=== PATIENT | female | born 2000 | race Caucasian/White ===

== ENCOUNTER 2019-10-22 20:54 | Emergency (ER) | payer OTHER ==
[2019-10-22 21:30] VITALS: BP 126/81; PULSE 75; TEMP 97.9; BMI 27.7
--- NOTE | 2019-10-22 22:15 | PDOC ---
History of Present Illness - General Chief Complaint: Pain Stated Complaint: ABD PAIN /NAUSEA Time Seen by Provider: 10/22/19 22:14 History Source: Patient Exam Limitations: No Limitations - History of Present Illness Initial Comments: 10/22/19 22:28 19yF w PMHx ADHD presenting w suprapubic pain and nausea. 7pm tonight, sudden onset midline suprapubic pain. Associated nausea and "head feeling heavy". Has been experiencing these symptoms at intermittent episodes not correlated w periods since May, started on OCP by OBGYN and told to get sonogram. Denies alcohol/smoking/illicit drugs. Irregular periods. Denies fever, cough, vomiting , chest pain, SOB, urinary/bowel mvmt changes. Past History - Past Medical History Allergies/Adverse Reactions: Allergies Allergy/AdvReac Type Severity Reaction Status Date / Time No Known Allergies Allergy Verified 10/22/19 21:30 CVA: No COPD: No - Psycho Social/Smoking Cessation Hx Smoking History: Never smoked Have you smoked in the past 12 months: No Information on smoking cessation initiated: No Hx Alcohol Use: No Drug/Substance Use Hx: No Review of Systems - Review of Systems Constitutional: No: Chills, Fever HEENTM: No: Eye Pain, Recent change in vision, Nose Pain, Throat Pain, Mouth Pain Respiratory: No: Cough, Shortness of Breath Cardiac (ROS): No: Chest Pain, Palpitations, Syncope ABD/GI: Yes: Nausea. No: Abdominal Distended, Constipated, Diarrhea, Vomiting : No: Burning, Dysuria, Flank Pain Musculoskeletal: No: Back Pain, Joint Pain, Neck Pain Integumentary: No: Bruising, Flushing, Lesions Neurological: No: Headache, Numbness, Seizure, Tingling Psychiatric: No: Anxiety, Depression, Stressors Endocrine: No: Excessive Sweating, Flushing, Intolerance to Cold, Intolerance to Heat Hematologic/Lymphatic: No: Anemia, Blood Clots *Physical Exam - Vital Signs Last Vital Signs Temp Pulse Resp BP Pulse Ox 97.9 F 75 17 126/81 100 10/22/19 21:28 10/22/19 21:28 10/22/19 21:28 10/22/19 21:28 10/22/19 21:28 - Physical Exam General Appearance: Yes: Nourished, Appropriately Dressed, Mild Distress HEENT: positive: EOMI, JOHN, Normal Voice, Hearing Grossly Normal. negative: Scleral Icterus (R), Scleral Icterus (L), Nasal Congestion, Rhinorrhea Respiratory/Chest: positive: Lungs Clear, Normal Breath Sounds. negative: Chest Tender, Respiratory Distress, Crackles, Rales, Rhonchi, Stridor, Wheezing Cardiovascular: positive: Regular Rhythm, Regular Rate, S1, S2. negative: Edema , Murmur Gastrointestinal/Abdominal: positive: Normal Bowel Sounds, Tender (moderate midline suprapubic pain), Flat, Soft. negative: Organomegaly, Distended, Guarding, Rebound, Tenderness, Hernia, Mass Musculoskeletal: negative: CVA Tenderness (R), CVA Tenderness (L) Extremity: positive: Normal Capillary Refill Integumentary: positive: Normal Color. negative: Hives, Petechiae, Rash Neurologic: positive: teaching artist II-XII NML intact, Fully Oriented, Alert, Normal Mood/ Affect, Normal Response, Responsive. negative: Sensory Deficit, Confused, Disoriented ED Treatment Course - LABORATORY CBC & Chemistry Diagram: 10/22/19 22:42 10/22/19 22:42 Medical Decision Making - Medical Decision Making 10/22/19 22:33 CBC CMP lipase UA Ucx 1L NS zofran tylenol US WBC 14 w left shift. normal CMP, neg preg --- 19yF w PMHx ADHD presenting w suprapubic pain and nausea. Ovarian cyst vs UTI. Low concern for appendicitis (no RLQ pain) vs ovarian torsion (pain not severe) vs pancreatitis (normal lipase). Not . Given 1L NS, zofran, tylenol Anticipate DC w referred PCP f/u Signed out to night team - pending US read, UA Discharge - Discharge Information Problems reviewed: Yes Clinical Impression/Diagnosis: Suprapubic pain, Nausea Condition: Improved - Follow up/Referral Referrals: Junaid Tillman MD [Staff Physician] - - Patient Discharge Instructions - Post Discharge Activity
[2019-10-22] MEDS ORDERED: SODIUM CHLORIDE 0.9% 500 ML INFUS.BAG IV ONE (22:24)
[2019-10-22] MEDS ORDERED: ACETAMINOPHEN 1000 MG/100 ML VIAL (NON FORMULARY) IVPB ONE (22:24)
[2019-10-22] MEDS ORDERED: ONDANSETRON 4 MG/2 ML VIAL IVPUSH ONE (22:26)
[2019-10-22] MEDS ORDERED: ONDANSETRON 4 MG/2 ML VIAL ONE (22:48)
[2019-10-22] MEDS ORDERED: ACETAMINOPHEN INJECTION 100 ML IVPB ONE (22:48)
[2019-10-22 22:51] LABS: BASO % 0.4 % (0-2.0); EOS % 0.7 % (0-4.5); HEMATOCRIT 38.8 % (32.4-45.2); HEMOGLOBIN 13.4 GM/dL (10.7-15.3); LYMPH % 12.9 % (8-40); MCH 32.1 pg (25.7-33.7); MCHC 34.6 g/dl (32.0-36.0); MEAN CELL VOLUME 92.7 fl (80-96); MEAN PLT VOLUME 7.4 fl (7.5-11.1); PLATELET COUNT 359 K/MM3 (134-434); RBC 4.19 M/mm3 (3.60-5.2); RDW 12.8 % (11.6-15.6); WHITE BLOOD COUNT 14.5 K/mm3 (4.0-10.0)
[2019-10-22 23:20] LABS: ALBUMIN 4.3 g/dl (3.4-5.0); BILIRUBIN,TOTAL 0.2 mg/dL (0.2-1); BLOOD UREA NITROGEN 14.7 mg/dL (7-18); CALCIUM 9.1 mg/dL (8.5-10.1); CREATININE 0.8 mg/dL (0.55-1.3); POTASSIUM 4.2 mmol/L (3.5-5.1); TOT PROT 7.8 g/dl (6.4-8.2)
--- NOTE | 2019-10-23 00:04 | PDOC ---
*Physical Exam - Vital Signs Last Vital Signs Temp Pulse Resp BP Pulse Ox 97.9 F 75 17 126/81 100 10/22/19 21:28 10/22/19 21:28 10/22/19 21:28 10/22/19 21:28 10/22/19 21:28 ED Treatment Course - LABORATORY CBC & Chemistry Diagram: 10/22/19 22:42 10/22/19 22:42 - ADDITIONAL ORDERS Additional order review: Laboratory Results 10/22/19 10/22/19 22:42 22:42 Sodium 139 Potassium 4.2 Chloride 105 Carbon Dioxide 26 Anion Gap 9 BUN 14.7 Creatinine 0.8 Est GFR (CKD-EPI)AfAm 123.01 Est GFR (CKD-EPI)NonAf 106.13 Random Glucose 87 Calcium 9.1 Total Bilirubin 0.2 AST 14 L ALT 26 Alkaline Phosphatase 73 Total Protein 7.8 Albumin 4.3 Lipase 120 Serum , Qual Negative 10/22/19 22:42 RBC 4.19 MCV 92.7 MCHC 34.6 RDW 12.8 MPV 7.4 L Neutrophils % 83.0 H Lymphocytes % 12.9 Monocytes % 3.0 L Eosinophils % 0.7 Basophils % 0.4 - Medications Given in the ED: ED Medications Discontinued Medications Generic Name Dose Route Start Last Admin Trade Name Freq PRN Reason Stop Dose Admin Acetaminophen 1,000 mg 10/22/19 22:24 10/22/19 23:03 Ofirmev Injection - IVPB 10/22/19 22:25 1,000 mg ONCE ONE Administration Ondansetron HCl 4 mg 10/22/19 22:26 10/22/19 23:03 Zofran Injection IVPUSH 10/22/19 22:27 4 mg NOW ONE Administration Sodium Chloride 1,000 ml 10/22/19 22:24 10/22/19 23:02 Normal Saline - IV 10/22/19 22:25 1,000 ml ONCE ONE Administration Medical Decision Making - Medical Decision Making 10/23/19 00:02 Pt received on sign out from Dr. Gordon. 19 yo F hx of ADHD here for nausea and suprapubic pain. ED course significant for zofran and tylenol with symptom improvement. UA and US pending. Concern for ovarian cyst vs UTI. Plan to d/c home. 10/23/19 01:09 US shows anterior fibroid. No evidence of ovarian torsion. UA reviewed. Urine Test Results Urine Color Yellow 10/22/19 23:58 Urine Appearance Clear 10/22/19 23:58 Urine pH 6.0 (5.0-8.0) 10/22/19 23:58 Ur Specific [place] 1.016 (1.010-1.035) 10/22/19 23:58 Urine Protein Negative (NEGATIVE) 10/22/19 23:58 Urine Glucose (UA) Negative (NEGATIVE) 10/22/19 23:58 Urine Ketones Negative (NEGATIVE) 10/22/19 23:58 Urine Blood Negative (NEGATIVE) 10/22/19 23:58 Urine Nitrite Negative (NEGATIVE) 10/22/19 23:58 Urine Bilirubin Negative (NEGATIVE) 10/22/19 23:58 Ur Leukocyte Esterase Trace (NEGATIVE) 10/22/19 23:58 Plan to d/c home with OBGYN follow up for fibroid and PCP follow up. Patient verbalized understanding and agreement with plan. States that she lives in [place] and will f/u with her [employer] there in 3 days when she returns home. All questions answered. Return precautions given. Discharge - Discharge Information Problems reviewed: Yes Clinical Impression/Diagnosis: Suprapubic pain, Nausea Condition: Improved Disposition: HOME - Admission No - Follow up/Referral Referrals: Angela Espino DO [Staff Physician] - Junaid Tillman MD [Staff Physician] - - Patient Discharge Instructions Patient Printed Discharge Instructions: DI for Abdominal Pain-Adult Additional Instructions: Please make a follow up appointment with your OBGYN. If you experience any new, worsening, or concerning symptoms, including lower abdominal pain that becomes focal, please return to the emergency department immediately. - Post Discharge Activity
[2019-10-23 00:19] LABS: EPI CELLS 2.2 /HPF (0-5/HPF); HYALINE CASTS 1 /lpf (0-8); URINE APPEARANCE CLEAR; URINE BACTERIA 86.5 /hpf (NEGATIVE); URINE BILIRUBIN NEGATIVE (NEGATIVE); URINE COLOR YELLOW; URINE GLUCOSE (UA) NEGATIVE (NEGATIVE); URINE KETONE NEGATIVE (NEGATIVE); URINE LEUK ESTERASE TRACE (NEGATIVE); URINE NITRITE NEGATIVE (NEGATIVE); URINE PROTEIN NEGATIVE (NEGATIVE); URINE RBC 1 /hpf (0-4); URINE UROBILINOGEN 0.2 mg/dL (0.2-1.0); URINE WBC 5 /hpf (0-5)
--- NOTE | 2019-10-23 00:50 | PDOC ---
Documentation entered by Devaughn Patrick SCRIBE, acting as scribe for Tanya Jacobo MD. Tanya Jacobo MD: This documentation has been prepared by the yfnibe, Devaughn Patrick SCRIBE, under my direction and personally reviewed by me in its entirety. I confirm that the documentation accurately reflects all work, treatment, procedures, and medical decision making performed by me. Attending Attestation - Resident Resident Name: HeidiDarin - ED Attending Attestation I have performed the following: I have examined & evaluated the patient, The case was reviewed & discussed with the resident, I agree w/resident's findings & plan, Exceptions are as noted - HPI HPI: 10/22/19 22:51 The patient is a 19 year old female with a past medical history of ADD here today for evaluation of suprapubic pain and nausea. The patient reports that tonight she developed suprapubic pain, nausea, and head heaviness. She reports having multiple episodes since 05/26 and states that the episodes do not happen regularly. She reports going to her RESIDENCE LIFE COORDINATOR who put her on control. Patient states that her periods are irregular with her LMP 10/08/19 and states that she is not sexually active. Patient denies headache, lightheadedness. Denies fever, chills. Denies chest pain, shortness of breath. Denies nausea, vomiting, diarrhea. Allergies: NKA - Physicial Exam PE: 10/22/19 22:53 GENERAL: Well developed, well nourished. Awake and alert. No acute distress. HEENT: Normocephalic, atraumatic. PERRLA, EOMI. No conjunctival pallor. Sclera are non- icteric. Moist mucous membranes. Oropharynx is clear. NECK: Supple. Full ROM. No JVD. Carotid pulses 2+ and symmetric, without bruits. No thyromegaly. No lymphadenopathy. CARDIOVASCULAR: Regular rate and rhythm. No murmurs, rubs, or gallops. Distal pulses are 2+ and symmetric. PULMONARY: No evidence of respiratory distress. Lungs clear to auscultation bilaterally. No wheezing, rales or rhonchi. ABDOMINAL: Soft. Non-tender. Non-distended. No rebound or guarding. No organomegaly. Normoactive bowel sounds. : deferred, patient states that she is not sexual active. MUSCULOSKELETAL Normal range of motion at all joints. No bony deformities or tenderness. No CVA tenderness. EXTREMITIES: No cyanosis. No clubbing. No edema. No calf tenderness. SKIN: Warm and dry. Normal capillary refill. No rashes. No jaundice. NEUROLOGICAL: Alert, awake, appropriate. Cranial nerves 2-12 intact. No deficits to light touch and temperature in face, upper extremities and lower extremities. No motor deficits in the face, upper extremities and lower extremities. Normoreflexic in the upper and lower extremities. Normal speech. Toes are down- going bilaterally. Gait is normal without ataxia. PSYCHIATRIC: Cooperative. Good eye contact. Appropriate mood and affect. - Medical Decision Making 10/23/19 00:47 Pelvic ultrasound was positive for fibroid, no ovarian torsion or ruptured ovarian cyst Patient had repeat abdominal exam and she still has no focal tenderness, no rebound no guarding and normal bowel sounds Reviewing her labs she does have a leukocytosis 14.5 however she has a very benign abdominal exam and denies any pain she denies vomiting fever or chills it was discussed with her the signs and symptoms f appendicitis and she was instructed to return for ct scan if she dev any focal abd pain associated with nausea or vomiting or fever
== END 2019-10-23 01:33 | disposition home or self-care (01) ==
LOC: JER 20:54
PROC: 3E033NZ Introduction of Analgesics, Hypnotics, Sedatives into Peripheral Vein, Percutaneous Approach (ICD-10-PCS; principal; 2019-10-22)
PROC: 3E033GC Introduction of Other Therapeutic Substance into Peripheral Vein, Percutaneous Approach (ICD-10-PCS; 2019-10-22)
DX: R10.30 Lower abdominal pain, unspecified (principal); R11.0 Nausea
CPT/HCPCS: 36415; 76856-TC; 80053; 81003; 83690; 84703; 85025; 87086; 99283-25; J0131

== ENCOUNTER 2020-01-03 15:26 | Emergency (ER) | payer OTHER ==
[2020-01-03 15:32] VITALS: BP 124/84; PULSE 96; TEMP 98.2; BMI 28.5
--- NOTE | 2020-01-03 15:34 | PDOC ---
Rapid Medical Evaluation Time Seen by Provider: 01/03/20 15:28 Medical Evaluation: Allergies Allergy/AdvReac Type Severity Reaction Status Date / Time No Known Allergies Allergy Verified 10/22/19 21:30 01/03/20 15:28 have performed a brief in-person evaluation of this patient. The patient presents with a chief complaint of: Here for hormone levels. Was on OCPs but developed side effects such as worsening of her migraines, so since discontinued off meds and now on depot. States her DIRECTOR OF CULTURE wanted to check hormone levels, i.e estrogen, thyroid, etc but that DIRECTOR OF CULTURE was unable to do labs so referred to PMD at [facility] but states they did not take her insurance so pt decided to come to ED. No acute medical complaints at this time Pertinent physical exam findings:well shira and stable I have ordered the following:nothing The patient will proceed to the ED for further evaluation. Discharge Disposition - Diagnosis Routine lab draw - Referrals - Patient Instructions - Post Discharge Activity
[2020-01-03] MEDS ORDERED: METOCLOPRAMIDE HCL INJECTION 10 MG/2 ML VIAL IVPB ONE (16:06)
[2020-01-03] MEDS ORDERED: ACETAMINOPHEN 1000 MG/100 ML VIAL (NON FORMULARY) IVPB ONE (16:06)
[2020-01-03] MEDS ORDERED: SODIUM CHLORIDE 1,000 ML IV STA (16:06)
--- NOTE | 2020-01-03 16:07 | PDOC ---
History of Present Illness - General Chief Complaint: Headache Stated Complaint: HEADACHE Time Seen by Provider: 01/03/20 15:28 History Source: Patient Exam Limitations: No Limitations Past History - Travel Traveled outside of the country in the last 30 days: No Close contact w/someone who was outside of country & ill: No - Past Medical History Allergies/Adverse Reactions: Allergies Allergy/AdvReac Type Severity Reaction Status Date / Time No Known Allergies Allergy Verified 01/03/20 15:32 Home Medications: Ambulatory Orders NK [No Known Home Medication] 01/03/20 CVA: No COPD: No - Psycho Social/Smoking Cessation Hx Smoking History: Never smoked Have you smoked in the past 12 months: No Information on smoking cessation initiated: No Hx Alcohol Use: No Drug/Substance Use Hx: No Review of Systems - Review of Systems Able to Perform ROS?: Yes Comments:: 01/03/20 16:21 CONSTITUTIONAL: Absent: fever, chills, diaphoresis, generalized weakness, malaise, loss of appetite HEENT: Absent: rhinorrhea, nasal congestion, throat pain, throat swelling, difficulty swallowing, mouth swelling, ear pain, eye pain, visual Changes CARDIOVASCULAR: Absent: chest pain, loss of consciousness, palpitations, irregular heart rate, peripheral edema RESPIRATORY: Absent: cough, shortness of breath, dyspnea with exertion, orthopnea, wheezing, stridor, hemoptysis GASTROINTESTINAL: Absent: abdominal pain, abdominal distension, nausea, vomiting, diarrhea, constipation, melena, hematochezia GENITOURINARY: Absent: dysuria, frequency, urgency, hesitancy, hematuria, flank pain, genital pain MUSCULOSKELETAL: Absent: myalgia, arthralgia, joint swelling SKIN: Absent: rash, itching, pallor HEMATOLOGIC/IMMUNOLOGIC: Absent: easy bleeding, easy bruising, lymphadenopathy, frequent infections ENDOCRINE: Absent: unexplained weight gain, unexplained weight loss, heat intolerance, cold intolerance NEUROLOGIC: Present: Headache Absent: focal weakness or paresthesias, dizziness, unsteady gait, seizure, mental status changes, bladder or bowel incontinence PSYCHIATRIC: Absent: anxiety, depression, suicidal or homicidal ideation, hallucinations. Is the patient limited Georgian proficient: No *Physical Exam - Vital Signs Last Vital Signs Temp Pulse Resp BP Pulse Ox 98.2 F 96 H 18 124/84 100 01/03/20 15:29 01/03/20 15:29 01/03/20 15:29 01/03/20 15:29 01/03/20 15:29 - Physical Exam 01/03/20 16:22 GENERAL: Well developed, well nourished. Awake and alert. No acute distress. HEENT: Normocephalic, atraumatic. PERRLA, EOMI. No conjunctival pallor. Sclera are non- icteric. Moist mucous membranes. Oropharynx is clear. NECK: Supple. Full ROM. No JVD. Carotid pulses 2+ and symmetric, without bruits. No thyromegaly. No lymphadenopathy. CARDIOVASCULAR: Regular rate and rhythm. No murmurs, rubs, or gallops. Distal pulses are 2+ and symmetric. PULMONARY: No evidence of respiratory distress. Lungs clear to auscultation bilaterally. No wheezing, rales or rhonchi. ABDOMINAL: Soft. Non-tender. Non-distended. No rebound or guarding. No organomegaly. Normoactive bowel sounds. MUSCULOSKELETAL Normal range of motion at all joints. No bony deformities or tenderness. No CVA tenderness. EXTREMITIES: No cyanosis. No clubbing. No edema. No calf tenderness. SKIN: Warm and dry. Normal capillary refill. No rashes. No jaundice. NEUROLOGICAL: Alert, awake, appropriate. Cranial nerves 2-12 intact. No deficits to light touch and temperature in face, upper extremities and lower extremities. No motor deficits in the in face, upper extremities and lower extremities. Normoreflexic in the upper and lower extremities. Normal speech. Toes are down- going bilaterally. Gait is normal without ataxia. PSYCHIATRIC: Cooperative. Good eye contact. Appropriate mood and affect. ED Treatment Course - LABORATORY CBC & Chemistry Diagram: 01/03/20 16:10 01/03/20 16:10 Medical Decision Making - Medical Decision Making 01/03/20 16:24 The patient is a 19-year-old female with past medical history of migraines, presents to the ER today for headache and lightheadedness. She states that she was on oral contraceptives approximately 1 month ago however they were giving her rebound headaches. Her REACTOR KETTLE OPERATOR stop the oral contraceptives and placed her on double. She states that since then she is still having headaches. She notes that she is feeling lightheaded and weak. She was supposed to see her primary care doctor today, however they do not take her insurance at this time. She came to the ER for headache and need for blood work. Explained to the patient we do not do hormone testing in the ER as her OB requested, but will rule out other acute pathology at this time. She states she took Excedrin Migraine with relief of symptoms approximately 6 hours ago, however the headache is starting to come back. She states that the light makes the pain worse. She rates the pain a 6 out of 10. Denies dizziness, nausea, vomiting, gait changes. A/P: Headache On exam patient is neurologically intact with no focal deficits We will get basic labs given her lightheadedness and weakness. Migraine cocktail given. Reevaluate 01/03/20 17:57 Labs show no acute pathology at this time Sugar mildly elevated at 150 Headache completely resolved DC home with primary care f/u I discussed the physical exam findings, ancillary test results and final diagnoses with the patient. I answered all of the patient's questions. The patient was satisfied with the care received and felt comfortable with the discharge plan and treatment plan. The Patient agrees to follow up with the primary care physician/specialist within 24-72 hours. Return precautions were given. Discharge - Discharge Information Problems reviewed: Yes Clinical Impression/Diagnosis: Routine lab draw Headache Qualifiers: Headache type: unspecified Headache chronicity pattern: acute headache Intractability: not intractable Qualified Code(s): R51 - Headache Condition: Stable Disposition: HOME - Admission No - Follow up/Referral Referrals: Zain Reardon MD [Staff Physician] - - Patient Discharge Instructions Patient Printed Discharge Instructions: DI for Migraine Additional Instructions: You were evaluated for your headaches today. Your lab work showed no emergencies. Your sugar was mildly elevated at 150. Please follow-up with a primary care provider. I provided you the number for Dr. Reardon. She is at our clinic associated with [facility] Please call the office to make an appointment or see if they take your insurance. You may continue to take the migraine relief medication as directed for your headaches. Return to the ER for any new or worsening symptoms. - Post Discharge Activity Work/Back to School Note: Back to School
[2020-01-03] MEDS ORDERED: ACETAMINOPHEN INJECTION 100 ML IVPB ONE (16:17)
[2020-01-03] MEDS ORDERED: METOCLOPRAMIDE HCL INJECTION 10 MG/2 ML VIAL ONE (16:17)
[2020-01-03 17:43] LABS: BASO % 0.4 % (0-2.0); EOS % 2.7 % (0-4.5); HEMATOCRIT 39.7 % (32.4-45.2); HEMOGLOBIN 13.9 GM/dL (10.7-15.3); LYMPH % 30.1 % (8-40); MCH 32.7 pg (25.7-33.7); MCHC 35.1 g/dl (32.0-36.0); MEAN CELL VOLUME 93.2 fl (80-96); MEAN PLT VOLUME 7.7 fl (7.5-11.1); MONO % 4.3 % (3.8-10.2); NEUT % 62.5 % (42.8-82.8); PLATELET COUNT 345 K/MM3 (134-434); RBC 4.26 M/mm3 (3.60-5.2); RDW 12.5 % (11.6-15.6); WHITE BLOOD COUNT 8.5 K/mm3 (4.0-10.0)
[2020-01-03 17:50] LABS: BILIRUBIN,TOTAL 0.3 mg/dL (0.2-1); BLOOD UREA NITROGEN 12.7 mg/dL (7-18); CALCIUM 9.3 mg/dL (8.5-10.1); CREATININE 0.8 mg/dL (0.55-1.3); POTASSIUM 5.1 mmol/L (3.5-5.1); TOT PROT 7.6 g/dl (6.4-8.2)
== END 2020-01-03 18:07 | disposition home or self-care (01) ==
LOC: JERFT 15:26
PROC: 3E033NZ Introduction of Analgesics, Hypnotics, Sedatives into Peripheral Vein, Percutaneous Approach (ICD-10-PCS; principal; 2020-01-03)
PROC: 3E033GC Introduction of Other Therapeutic Substance into Peripheral Vein, Percutaneous Approach (ICD-10-PCS; 2020-01-03)
DX: R51 Headache (principal)
CPT/HCPCS: 36415; 80053; 84443; 84703; 85025; 96374; 96375; 99284-25; J0131; J7030